=== PATIENT | female | born 1940 | race Caucasian/White ===

== ENCOUNTER 2019-10-17 16:00 | Inpatient (IN) ==
[2019-10-17] MEDS ORDERED: Ondansetron 4 mg VIAL 2 MG/ML 2 ml VIAL IV ONE (16:13)
[2019-10-17] MEDS ORDERED: Morphine 4 MG/ML VIAL (1 ml) IV ONE (16:13)
[2019-10-17] MEDS ORDERED: HYDROmorphone 1 MG/1 ML SYRINGE IV ONE (17:01)
[2019-10-17] MEDS ORDERED: Midazolam 2 mg/2 ml VIAL 1 mg/ml 2 ml VIAL (2 mg) ONE (17:35)
[2019-10-17] MEDS ORDERED: HYDROmorphone 0.5 MG/0.5 ML SYRINGE IV ONE (17:50)
[2019-10-17] MEDS ORDERED: Midazolam 2 mg/2 ml VIAL 1 mg/ml 2 ml VIAL (2 mg) IV SLOW PU ONE (17:51)
[2019-10-17 18:28] LABS: ABS Basophils 0.1 10^3/ul (0-0.2); ABS Lymphocytes 1.1 10^3/ul (1.0-4.8); ABS Monocytes 0.6 10^3/ul (0-0.8); ABS Neutrophils 6.6 10^3/ul (1.5-7.7); Hematocrit 38 % (35-47); Hemoglobin 13.4 g/dL (12.0-16.0); Lymphocyte % 13.7 %; Mean Corpuscular HGB Conc 35 g/dL (31-36); Mean Corpuscular Hemoglobin 36 pg (27-31); Mean Corpuscular Volume 104 fL (80-97); Mean Platelet Volume 7.4 fL (7.4-10.4); Nucleated Red Blood Cells % 0.1; Platelet Count 242 10^3/uL (150-450); Red Blood Count 3.69 10^6 /uL (3.70-4.87); Red Cell Distribution Width 13 % (10-15); White Blood Count 8.4 10^3/uL (3.5-10.8)
[2019-10-17 18:42] LABS: Activated Partial Thrombo Time 27.4 seconds (26.0-38.0); INR 1.2 (0.82-1.09)
[2019-10-17 18:46] LABS: Albumin 3.9 g/dL (3.2-5.2); BUN/Creatinine Ratio 28.6 (8-20); C Reactive Protein 10.16 mg/L (<8.01); Calcium 9.3 mg/dL (8.6-10.3); EGFR African American 66.6 (>60); Potassium 3.9 mmol/L (3.5-5.0); Total Bilirubin 0.5 mg/dL (0.2-1.0); Total Protein 5.9 g/dL (6.4-8.9)
[2019-10-17 20:18] LABS: Urine Appearance Clear; Urine Bilirubin Negative (Negative); Urine Blood Negative (Negative); Urine Color Yellow; Urine Glucose Negative (Negative); Urine Ketones Negative (Negative); Urine Nitrite Negative (Negative); Urine Protein Negative (Negative); Urine Specific Gravity 1.017 (1.010-1.030); Urine Urobilinogen Negative (Negative)
[2019-10-17] MEDS: NS 0.9% 1000 ml BAG 1,000 ML IV SCH (21:31)
[2019-10-17] MEDS: Latanoprost 0.005% 2.5 ml BTL BOTH EYES SCH (23:16)
[2019-10-18 05:56] LABS: ABS Lymphocytes 2.4 10^3/ul (1.0-4.8); ABS Monocytes 0.7 10^3/ul (0-0.8); ABS Neutrophils 5.3 10^3/ul (1.5-7.7); Eosinophil % 0.5 %; Hematocrit 34 % (35-47); Hemoglobin 12.4 g/dL (12.0-16.0); Mean Corpuscular HGB Conc 36 g/dL (31-36); Mean Corpuscular Hemoglobin 38 pg (27-31); Mean Corpuscular Volume 104 fL (80-97); Mean Platelet Volume 7.2 fL (7.4-10.4); Platelet Count 200 10^3/uL (150-450); Red Blood Count 3.29 10^6 /uL (3.70-4.87); Red Cell Distribution Width 12 % (10-15); White Blood Count 8.4 10^3/uL (3.5-10.8)
[2019-10-18 06:14] LABS: BUN/Creatinine Ratio 29.4 (8-20); Calcium 8.8 mg/dL (8.6-10.3); EGFR African American 78.5 (>60); EGFR Non-African American 64.9 (>60); Potassium 3.5 mmol/L (3.5-5.0)
[2019-10-18] MEDS: Latanoprost 0.005% 2.5 ml BTL BOTH EYES SCH ×2 (08:23→21:38)
[2019-10-18] MEDS ORDERED: Timolol 0.25% OPHTH.SOLN BTL BOTH EYES SCH (09:00)
[2019-10-18] MEDS: NS 0.9% 1000 ml BAG 1,000 ML IV SCH (10:10)
[2019-10-18] MEDS: Enoxaparin 80 MG/0.8 ML SYR SUBCUT SCH ×2 (11:40→23:43)
[2019-10-18] MEDS ORDERED: Latanoprost 0.005% 2.5 ml BTL BOTH EYES SCH (18:00)
[2019-10-18] MEDS: Timolol 0.25% OPHTH.SOLN BTL BOTH EYES SCH (21:42)
[2019-10-19] MEDS: NS 0.9% 1000 ml BAG 1,000 ML IV SCH
[2019-10-19] MEDS ORDERED: Buffered Lidocaine 1% SYRIN 1 ml INTRADERM ONE (06:00)
[2019-10-19] MEDS ORDERED: Lactated Ringers 1000 ml BAG 1,000 ML IV SCH (06:00)
[2019-10-19 06:52] LABS: ABS Eosinophils 0.1 10^3/ul (0-0.6); ABS Monocytes 0.6 10^3/ul (0-0.8); ABS Neutrophils 4.5 10^3/ul (1.5-7.7); Eosinophil % 0.7 %; Hematocrit 34 % (35-47); Hemoglobin 12.2 g/dL (12.0-16.0); Lymphocyte % 28.3 %; Mean Corpuscular HGB Conc 36 g/dL (31-36); Mean Corpuscular Hemoglobin 38 pg (27-31); Mean Corpuscular Volume 106 fL (80-97); Mean Platelet Volume 7.5 fL (7.4-10.4); Platelet Count 188 10^3/uL (150-450); Red Blood Count 3.23 10^6 /uL (3.70-4.87); Red Cell Distribution Width 13 % (10-15); White Blood Count 7.2 10^3/uL (3.5-10.8)
[2019-10-19 07:04] LABS: BUN/Creatinine Ratio 16.9 (8-20); Calcium 8.3 mg/dL (8.6-10.3); EGFR Non-African American 72.7 (>60); Potassium 3.3 mmol/L (3.5-5.0)
[2019-10-19 07:54] LABS: Magnesium 1.8 mg/dL (1.9-2.7)
[2019-10-19] MEDS ORDERED: Magnesium Sulfate IV 1GM/100ML 1 GM/100 ML BAG IV ONE (07:54)
[2019-10-19] MEDS: Potassium Chlor 20 meq TAB.ER PO SCH ×4 (08:54→17:36)
[2019-10-19] MEDS: Timolol 0.25% OPHTH.SOLN BTL BOTH EYES SCH ×2 (08:55→22:30)
[2019-10-19 09:05] LABS: INR 1.14 (0.82-1.09)
[2019-10-19] MEDS ORDERED: Ondansetron 4 mg VIAL 2 MG/ML 2 ml VIAL IV PRN (09:22)
[2019-10-19] MEDS ORDERED: fentaNYL 250 mcg/5 ml 50 MCG/ML 5 ml VIAL (250 MCG) ONE (12:07)
[2019-10-19] MEDS ORDERED: Rocuronium 50 mg VIAL 10 mg/ml 5 ml VIAL (50 mg) ONE ×3 (12:07→16:30)
[2019-10-19] MEDS ORDERED: Lidocaine 2% PF 5 ML VIAL ONE (12:07)
[2019-10-19] MEDS ORDERED: Etomidate 20 mg/10 ml 2 MG/ML 10 ml VIAL ONE (12:07)
[2019-10-19] MEDS ORDERED: Propofol 10 MG/ML 20 ML BTL ONE (12:24)
[2019-10-19] MEDS ORDERED: Hydrocortisone INJ 100 MG/2ML 2 ML VIAL IV ONE (12:30)
[2019-10-19] MEDS ORDERED: ceFAZolin 2 GM PREMIX 2 GM/50 ML BAG ONE (12:52)
[2019-10-19] MEDS ORDERED: Bupivacaine 0.5% 50 ML MDV VIAL ONE (14:04)
[2019-10-19] MEDS ORDERED: Acetaminophen IV 1 GM/100ML 100 ML ONE (14:18)
[2019-10-19] MEDS ORDERED: Calcium CHLORIDE 10% SYRINGE 1 GM/10 ML ONE (14:18)
[2019-10-19] MEDS ORDERED: Hydrocortisone INJ 100 MG/2ML 2 ML VIAL ONE (14:19)
[2019-10-19] MEDS ORDERED: Ketamine HCL 50 mg/ml 10 ml VIAL (500 MG) ONE (14:47)
[2019-10-19] MEDS ORDERED: Ondansetron 4 mg VIAL 2 MG/ML 2 ml VIAL ONE (15:03)
[2019-10-19] MEDS ORDERED: Dexamethasone IV 4 MG/ML VIAL 1 ml VIAL ONE (15:03)
[2019-10-19] MEDS ORDERED: DiMENhydriNATE IV 50 mg/ml 1 ml VIAL IV PUSH PRN (15:52)
[2019-10-19] MEDS ORDERED: Naloxone 0.4 mg VIAL 0.4 mg/ml 1 ml VIAL IV PRN (15:52)
[2019-10-19] MEDS ORDERED: Glycopyrrolate IV 0.2 MG/ML 1 ML VIAL ONE (16:04)
[2019-10-19] MEDS ORDERED: EPHEDrine (Pressors) 50 MG/ML VIAL ONE (16:22)
[2019-10-19] MEDS: HYDROmorphone 1 MG/1 ML SYRINGE IV PRN ×3 (18:07→18:21)
[2019-10-19] MEDS ORDERED: HYDROmorphone 1 MG/1 ML SYRINGE ONE (18:07)
[2019-10-19] MEDS ORDERED: oxyCODONE/Acetamin 5/325 mg TAB PO PRN (19:21)
[2019-10-19] MEDS: Lactated Ringers 1000 ml BAG 1,000 ML IV SCH (19:47)
[2019-10-19] MEDS: Latanoprost 0.005% 2.5 ml BTL BOTH EYES SCH (21:48)
[2019-10-19] MEDS: Hydrocortisone INJ 100 MG/2ML 2 ML VIAL IV SCH (21:50)
[2019-10-19] MEDS: oxyCODONE/Acetamin 5/325 mg TAB PO PRN (22:27)
[2019-10-19] MEDS: ceFAZolin 1 GM* X 3 DOSES POST-OP Q8H (AddVan) IVPB SCH (22:28)
[2019-10-20] MEDS: oxyCODONE/Acetamin 5/325 mg TAB PO PRN ×4 (03:56→21:44)
[2019-10-20] MEDS: Hydrocortisone INJ 100 MG/2ML 2 ML VIAL IV SCH ×2 (03:57→12:37)
[2019-10-20] MEDS: Lactated Ringers 1000 ml BAG 1,000 ML IV SCH ×2 (04:04→16:00)
[2019-10-20 05:53] LABS: Hematocrit 27 % (35-47); Hemoglobin 9.7 g/dL (12.0-16.0); Mean Corpuscular HGB Conc 35 g/dL (31-36); Mean Corpuscular Hemoglobin 37 pg (27-31); Mean Corpuscular Volume 104 fL (80-97); Mean Platelet Volume 7.6 fL (7.4-10.4); Platelet Count 189 10^3/uL (150-450); Red Blood Count 2.62 10^6 /uL (3.70-4.87); Red Cell Distribution Width 12 % (10-15); White Blood Count 9.3 10^3/uL (3.5-10.8)
[2019-10-20] MEDS: ceFAZolin 1 GM* X 3 DOSES POST-OP Q8H (AddVan) IVPB SCH ×2 (06:03→14:20)
[2019-10-20 06:16] LABS: BUN/Creatinine Ratio 16.9 (8-20); Calcium 8.7 mg/dL (8.6-10.3); EGFR African American 106.9 (>60); EGFR Non-African American 88.4 (>60); Magnesium 1.8 mg/dL (1.9-2.7)
[2019-10-20] MEDS: Timolol 0.25% OPHTH.SOLN BTL BOTH EYES SCH ×2 (08:30→21:44)
[2019-10-20] MEDS ORDERED: Magnesium Sulfate 2 gm BAG 2 GM/50 ML BAG IVPB ONE (09:00)
[2019-10-20] MEDS: Latanoprost 0.005% 2.5 ml BTL BOTH EYES SCH (21:44)
[2019-10-21] MEDS: oxyCODONE/Acetamin 5/325 mg TAB PO PRN ×5 (02:04→23:21)
[2019-10-21] MEDS: Lactated Ringers 1000 ml BAG 1,000 ML IV SCH ×2 (02:07→10:53)
[2019-10-21] MEDS: Timolol 0.25% OPHTH.SOLN BTL BOTH EYES SCH ×2 (08:06→21:00)
[2019-10-21] MEDS ORDERED: Lactulose 30 ml UDC PO PRN (10:11)
[2019-10-21] MEDS ORDERED: Senna TAB 8.6 mg TAB PO PRN (10:11)
[2019-10-21] MEDS ORDERED: Sodium Phosphate ADULT ENEMA 133 ML BTL PR PRN (10:11)
[2019-10-21] MEDS ORDERED: Polyethylene Glycol 3350 17 GM PACKET PO PRN (10:11)
[2019-10-21] MEDS: Magnesium Hydroxide LIQ 30 ML UDC PO SCH ×2 (10:23→21:01)
[2019-10-21 11:41] LABS: Hematocrit 25 % (35-47); Hemoglobin 8.7 g/dL (12.0-16.0); Mean Corpuscular HGB Conc 35 g/dL (31-36); Mean Corpuscular Hemoglobin 37 pg (27-31); Mean Corpuscular Volume 106 fL (80-97); Mean Platelet Volume 7.8 fL (7.4-10.4); Platelet Count 197 10^3/uL (150-450); Red Blood Count 2.37 10^6 /uL (3.70-4.87); Red Cell Distribution Width 13 % (10-15); White Blood Count 7.9 10^3/uL (3.5-10.8)
[2019-10-21] MEDS: Latanoprost 0.005% 2.5 ml BTL BOTH EYES SCH (21:27)
[2019-10-22] MEDS: oxyCODONE/Acetamin 5/325 mg TAB PO PRN ×5 (03:20→21:53)
[2019-10-22] MEDS: Magnesium Hydroxide LIQ 30 ML UDC PO SCH ×2 (08:33→21:54)
[2019-10-22] MEDS: Timolol 0.25% OPHTH.SOLN BTL BOTH EYES SCH ×2 (08:34→22:14)
[2019-10-22] MEDS: Latanoprost 0.005% 2.5 ml BTL BOTH EYES SCH (21:54)
[2019-10-23] MEDS: oxyCODONE/Acetamin 5/325 mg TAB PO PRN ×4 (03:43→21:18)
[2019-10-23 06:13] LABS: Calcium 8.2 mg/dL (8.6-10.3)
[2019-10-23 06:14] LABS: ABS Eosinophils 0.1 10^3/ul (0-0.6); ABS Monocytes 0.5 10^3/ul (0-0.8); ABS Neutrophils 3.4 10^3/ul (1.5-7.7); Eosinophil % 1.4 %; Hematocrit 24 % (35-47); Hemoglobin 8.2 g/dL (12.0-16.0); Lymphocyte % 33.6 %; Mean Corpuscular HGB Conc 34 g/dL (31-36); Mean Corpuscular Hemoglobin 37 pg (27-31); Mean Corpuscular Volume 107 fL (80-97); Mean Platelet Volume 7.6 fL (7.4-10.4); Nucleated Red Blood Cells % 0.1; Platelet Count 201 10^3/uL (150-450); Red Blood Count 2.25 10^6 /uL (3.70-4.87); Red Cell Distribution Width 13 % (10-15); White Blood Count 6.1 10^3/uL (3.5-10.8)
[2019-10-23 06:19] LABS: BUN/Creatinine Ratio 20.9 (8-20); EGFR African American 103.3 (>60); EGFR Non-African American 85.3 (>60)
[2019-10-23] MEDS: Timolol 0.25% OPHTH.SOLN BTL BOTH EYES SCH ×2 (09:24→21:19)
[2019-10-23] MEDS: Magnesium Hydroxide LIQ 30 ML UDC PO SCH ×2 (09:24→21:19)
[2019-10-23] MEDS: Latanoprost 0.005% 2.5 ml BTL BOTH EYES SCH (21:19)
[2019-10-24] MEDS: oxyCODONE/Acetamin 5/325 mg TAB PO PRN ×4 (03:52→21:19)
[2019-10-24 08:26] LABS: C Reactive Protein 104.13 mg/L (<8.01)
[2019-10-24] MEDS: Timolol 0.25% OPHTH.SOLN BTL BOTH EYES SCH ×2 (08:55→21:19)
[2019-10-24] MEDS: Magnesium Hydroxide LIQ 30 ML UDC PO SCH ×2 (08:55→21:27)
[2019-10-24] MEDS: Latanoprost 0.005% 2.5 ml BTL BOTH EYES SCH (21:23)
[2019-10-25] MEDS: oxyCODONE/Acetamin 5/325 mg TAB PO PRN ×2 (05:43→20:50)
[2019-10-25] MEDS: Timolol 0.25% OPHTH.SOLN BTL BOTH EYES SCH ×2 (10:13→20:51)
[2019-10-25] MEDS: Magnesium Hydroxide LIQ 30 ML UDC PO SCH ×2 (10:13→20:53)
[2019-10-25] MEDS: Latanoprost 0.005% 2.5 ml BTL BOTH EYES SCH (20:51)
[2019-10-26] MEDS: oxyCODONE/Acetamin 5/325 mg TAB PO PRN ×4 (00:27→17:36)
[2019-10-26] MEDS: Timolol 0.25% OPHTH.SOLN BTL BOTH EYES SCH ×2 (08:59→21:04)
[2019-10-26] MEDS: Magnesium Hydroxide LIQ 30 ML UDC PO SCH ×3 (08:59→21:05)
[2019-10-26 09:07] LABS: Hematocrit 25 % (35-47); Hemoglobin 8.8 g/dL (12.0-16.0)
[2019-10-26] MEDS: Latanoprost 0.005% 2.5 ml BTL BOTH EYES SCH (21:04)
[2019-10-27] MEDS ORDERED: oxyCODONE/Acetamin 5/325 mg TAB PO PRN (00:22)
[2019-10-27] MEDS: oxyCODONE/Acetamin 5/325 mg TAB PO PRN ×2 (00:51→09:05)
[2019-10-27 08:10] VITALS: BP 150/64
[2019-10-27] MEDS: Magnesium Hydroxide LIQ 30 ML UDC PO SCH (09:06)
[2019-10-27] MEDS: Timolol 0.25% OPHTH.SOLN BTL BOTH EYES SCH (09:07)
== END 2019-10-27 10:10 | disposition swing bed (61) | DRG 481 ==
LOC: ED 16:00 → SSU 18:31
PROVIDERS: ADMIT Student in an Organized Health Care Education/Training Program; ATTEND Student in an Organized Health Care Education/Training Program